=== PATIENT | male | born 1970 | race African-American/Black ===

== ENCOUNTER 2017-04-01 17:38 | Emergency (ER) | payer OTHER ==
[~2017-04-01] VITALS: Ht 195.6 cm; Wt 113.4 kg
[2017-04-01] MEDS ORDERED: PREDNISONE50 MG ORAL (18:02)
[2017-04-01] MEDS ORDERED: LORATADINE10 M2 PO (18:02)
[2017-04-01] MEDS ORDERED: FLONASE ALLERG9.9 ML NS (18:02)
[2017-04-01] MEDS ORDERED: AUGMENTIN 875-1 EAC1 ORAL (18:02)
--- NOTE | 2017-04-01 18:04 | Emergency Room Report ---
History of Present Illness General Chief Complaint: Flu Like Symptoms Source: Patient Present Illness HPI 46 y/o male c/o URI sxs x 3 days. Assoc sxs include nasal congestion, rhinorrhea , right sided sinus headache assoc w/ right ear pressure and dizziness, post nasal drip, bodyaches, chills, and cough due to tickle in the throat. States they have taken ibuprofen with mild relief of symptoms. Denies any current n/v/f /c/d, abd pain, back pain, neck pain, neck stiffness, photophobia, phonophobia, CP, or SOB. Allergies: Coded Allergies: MORPHINE (Verified Allergy, Unknown, 04/01/17) Patient History Past Medical History: see triage record Past Surgical History: none Pertinent Family History: none Reviewed Nursing Documentation: PMH: Agreed, PSxH: Agreed Nursing Documentation-PMH Past Medical History: No Stated History Review of Systems All Other Systems: negative except mentioned in HPI Physical Exam Vital Signs Date Time Temp Pulse Resp B/P (MAP) Pulse Ox O2 Delivery O2 Flow Rate FiO2 04/01/17 17:41 98.4 67 18 133/82 100 Room Air Sp02 EP Interpretation: reviewed, normal General Appearance: no apparent distress, alert, GCS 15, non-toxic Head: normocephalic, atraumatic Eyes: bilateral eye normal inspection, bilateral eye PERRL ENT: hearing grossly normal, normal pharynx, no angioedema, normal voice, nasal congestion, other - right TM erythematous and bulging. Right maxillary sinus tenderness Neck: full range of motion, no meningismus, no bony tend, supple/symm/no masses Respiratory: chest non-tender, lungs clear, normal breath sounds, speaking full sentences Cardiovascular #1: regular rate, rhythm, no edema Gastrointestinal: non tender, soft Musculoskeletal: back normal, gait/station normal, normal range of motion, non- tender Neurologic: alert, oriented x3, responsive, motor strength/tone normal, sensory intact, speech normal Skin: normal color, no rash, warm/dry, well hydrated Medical Decision Making PA Attestation Dr. Atkinson my supervising physician with whom patient management has been discussed with. Diagnostic Impression: Primary Impression: Otitis media of right ear Qualified Codes: H65.111 - Acute and subacute allergic otitis media (mucoid) ( sanguinous) (serous), right ear Additional Impression: Sinus headache ER Course Pt. presents to the ED c/o URI sxs x 3 days Ddx considered but are not limited to AOM, sinus pressure, AOE, URI, sinusitis, meningitis, CVA, ICH, labrynthisitis, strep throat, pnuemonia Vital signs: are WNL, pt. is afebrile H&PE are most consistent with AOM w/ sinus headache ORDERS: none required at this time, the diagnosis is clinical ED INTERVENTIONS: none required at this time. DISCHARGE: At this time pt. is stable for d/c to home. Will provide printed patient care instructions, and any necessary prescriptions. Care plan and follow up instructions have been discussed with the patient prior to discharge. Last Vital Signs Date Time Temp Pulse Resp B/P (MAP) Pulse Ox O2 Delivery O2 Flow Rate FiO2 04/01/17 17:51 65 16 Room Air 04/01/17 17:41 98.4 133/82 100 Disposition: HOME, SELF-CARE Condition: Stable Scripts Amoxicillin/Potassium Clav 875-125* (AUGMENTIN 875-125 TABLET*) 1 Each Tablet 1 TAB ORAL TWICE A DAY for 10 Days, #20 TAB Prov: SABRY,TAMEEM P.A. 04/01/17 Prednisone* (PREDNISONE*) 50 Mg Tablet 50 MG ORAL DAILY, #5 TAB 0 Refills Prov: SABRY,TAMEEM P.A. 04/01/17 Loratadine (LORATADINE) 10 Mg Tablet 10 MG PO DAILY for 14 Days, #14 TAB Prov: SABRY,TAMEEM P.A. 04/01/17 Fluticasone Propionate (Flonase Allergy Relief) 9.9 Ml [place].susp 2 SPRAYS NS DAILY for 7 Days, #10 ML Prov: SABRY,TAMEEM P.A. 04/01/17 Patient Instructions: Labyrinthitis, Otitis Media, Adult, Sinus Headache Additional Instructions: Take medication as directed. Advised patient to use salt water gargle PRN. Advised patient to use chloraseptic as needed for throat pain in addition to APAP Q4H. Patient advised they can take Ibuprofen and Tylenol Q6H together for fever control as well. Educated patient on rhinitis and encouraged patient to use OTC nasal decongestants, nasal irrigation / saline sprays, and avoidance of possible triggers that can cause nasal irritation. Educated patient on the benefits of the various OTC medications available (ie. H1 blockers, decongestants, nasal steroids, etc.). If sxs worsen or don't improve, please return sooner. Go to the ER if you develop SOB, CP, Rash, photophobia, neck pain , throat swelling occur, go to the ER immediately. BRAYDEN ALBA Apr 01, 2017 18:04
[2017-04-01 18:10] VITALS: BP 119/84
== END 2017-04-01 18:10 | disposition home or self-care (01) ==
LOC: EMR 17:50
DX: H66.91 Otitis media, unspecified, right ear (principal); R51 Headache; Z88.6 Allergy status to analgesic agent
CPT/HCPCS: 99284

== ENCOUNTER 2017-07-23 12:47 | Emergency (ER) | payer MEDICAID, OTHER ==
[~2017-07-23] VITALS: Ht 195.6 cm; Wt 112.5 kg
[~2017-07-23 12:47] MED LIST: AUGMENTIN 875-1 EAC1 ORAL; FLONASE ALLERG9.9 ML NS; LORATADINE10 M2 PO; PREDNISONE50 MG ORAL
[2017-07-23] MEDS ORDERED: Ketorolac 30mg Inj IM ONE (13:00)
--- NOTE | 2017-07-23 13:02 | Emergency Room Report ---
History of Present Illness General Chief Complaint: Lower Extremity Injury Source: Patient Present Illness HPI 46 yo male patient presents to ER complaining of right knee pain since last night. Reports jumped out of way of car and fell onto right knee. Denies hitting head or LOC. Reports fell to knee, no pain at first but hour after accident began to experience pain. Reports went and bought crutches and stayed home with knee elevated and ice after accident. Reports no loss of ROM but painful to do so. Reports took Ibuprofen for pain. Denies fever, chest pain, SOB. Allergies: Coded Allergies: MORPHINE (Verified Allergy, Unknown, 04/01/17) Patient History Past Medical History: see triage record Reviewed Nursing Documentation: PMH: Agreed; PSxH: Agreed Nursing Documentation-PMH Past Medical History: No Stated History Review of Systems All Other Systems: negative except mentioned in HPI Physical Exam Vital Signs Date Time Temp Pulse Resp B/P (MAP) Pulse Ox O2 Delivery O2 Flow Rate FiO2 07/23/17 12:50 98.2 72 18 143/88 96 Room Air 98.2 Sp02 EP Interpretation: reviewed, normal General Appearance: well appearing, no apparent distress, alert, GCS 15, non- toxic Head: normocephalic, atraumatic Eyes: bilateral eye normal inspection, bilateral eye PERRL Neck: full range of motion Respiratory: lungs clear, normal breath sounds, no rhonchi, no respiratory distress, no accessory muscle use, no wheezing, speaking full sentences Cardiovascular #1: regular rate, rhythm, no edema Cardiovascular #2: 2+ dorsalis pedis (R), 2+ dorsalis pedis (L) Musculoskeletal: back normal, digits/nails normal, non-tender, decreased range of motion - secondary to pain, swelling - right knee, other - NVI, no deformity , negative anterior and posterior drawer test, no laxity with varus/valgus stress, no abrasion, no skin break, no erythema, tender - medial aspect of right patella Neurologic: alert, oriented x3, responsive, motor strength/tone normal, sensory intact Psychiatric: mood/affect normal Skin: no rash Medical Decision Making PA Attestation Dr. Atkinson is my supervising Physician whom patient management has been discussed with. Diagnostic Impression: Primary Impression: Patella fracture ER Course Pt. presents to the ED c/o right knee pain. Ddx considered but are not limited to fracture, sprain, strain, contusion. No warmth to touch of knee, no erythema, no fever, nontoxic appearing, low suspicion for septic joint. Vital signs: are WNL, pt. is afebrile. BP slightly elevated, no hx of HTN. Denies CP, SOB. Likely related to pain. F/u with primary care provider for further management and referral as needed. Ordered X-ray and pain medication. ER COURSE Provided with Toradol for pain. An X-ray of the right knee was ordered, results show nondisplaced patella fracture, per the official reading. Radiologist discussed findings by phone with Dr. Atkinson in the emergency room at the time of interpretation. Knee immobilizer applied to right knee and was checked afterwards by me showing good alignment and support with distal neurovascular functioning intact. Patient has crutches, does not require. NWB RICE method. F/u with ortho. Provided with work note and CD copy of xray results. DISCHARGE: -Rx provided for Tylenol for pain symptoms. At this time pt. is stable for d/c to home. Patient is resting comfortably, in no acute distress, nontoxic appearing, talking without difficulty. Will provide printed patient care instructions, and any necessary prescriptions. Patient instructed to follow with primary care provider in 3 - 5 days and to request further orthopedic follow-up. Care plan and follow up instructions have been discussed with the patient prior to discharge. Patient instructed on RICE method: rest, ice, compression, elevation. Patient instructed to NWB. Take medications as directed. Patient questions asked and answered. Patient reports understanding and agreement to treatment plan. ER precautions given, patient instructed to return to ER immediately for any new or worsening of symptoms. Other X-Ray Diagnostic Results Other X-Ray Diagnostic Results : X-Ray ordered: right knee # of Views/Limited Vs Complete: 3 View Indication: Pain EP Interpretation: Yes PA Xray: Interpretation reviewed, by supervising MD, and agrees with findings. Interpretation: no dislocation, no soft tissue swelling, other - Medial patellar lucency, could represent a nondisplaced fracture. Correlate with clinical findings. No other acute bony trauma demonstrated Impression: Other PA Scribe Text Kyle Humphreys PA-C Last Vital Signs Date Time Temp Pulse Resp B/P (MAP) Pulse Ox O2 Delivery O2 Flow Rate FiO2 07/23/17 12:50 98.2 72 18 143/88 96 Room Air 98.2 Disposition: HOME, SELF-CARE Condition: Stable Scripts Ibuprofen* (MOTRIN*) 600 Mg Tablet 600 MG ORAL Q8H PRN for For Pain, #30 TAB 0 Refills Prov: Shine Humphreys 07/23/17 Departure Forms: Return to Work Return to Work Date: Jul 26, 2017 Patient Instructions: Knee Pain, [id number], Patellar Fracture, Adult Additional Instructions: Patient instructed to follow up with primary care provider and discuss further referral to orthopedics. Patient instructed on RICE method: rest, ice, compression, elevation. Patient instructed to NWB. Take medications as directed. Patient questions asked and answered. ER precautions given, patient instructed to return to ER immediately for any new or worsening of symptoms. Shine Humphreys Jul 23, 2017 13:02
[2017-07-23] MEDS ORDERED: IBUPROFEN600 MG ORAL (14:19)
[2017-07-23 14:31] VITALS: BP 140/85
--- NOTE | 2017-07-23 14:34 | Diagnostic Imaging Report ---
Indication: Pain, status post fall Technique: 3 views of the read knee Comparison: None Findings: There is a lucency on the medial aspect of the patella on the oblique view, not evident on other images. There is no overlying soft tissue swelling. No other evidence of acute fracture. No dislocations. The joint spaces are preserved Impression: Medial patellar lucency, could represent a nondisplaced fracture. Correlate with clinical findings. No other acute bony trauma demonstrated Findings discussed by phone with Dr. Atkinson in the emergency room at the time of interpretation
== END 2017-07-23 14:40 | disposition home or self-care (01) ==
LOC: EMR 13:25
DX: S82.001A Unspecified fracture of right patella, initial encounter for closed fracture (principal); Z88.6 Allergy status to analgesic agent; W18.39XA Other fall on same level, initial encounter; Y92.9 Unspecified place or not applicable
CPT/HCPCS: 73562; 96372; 99283; J1885

== ENCOUNTER 2017-10-13 16:24 | Emergency (ER) | payer MEDICAID ==
[~2017-10-13] VITALS: Ht 195.6 cm; Wt 108.9 kg
[~2017-10-13 16:24] MED LIST changes: +IBUPROFEN600 MG ORAL
[2017-10-13 16:53] VITALS: BP 147/82
[2017-10-13] MEDS ORDERED: Lidocaine 2% Visc 15ml soln ORAL ONE (17:15)
[2017-10-13] MEDS ORDERED: Fluconazole 100mg tab ORAL ONE (17:15)
[2017-10-13] MEDS ORDERED: NYSTATIN100000 UN1 ORAL (17:20)
--- NOTE | 2017-10-13 17:21 | Emergency Room Report ---
History of Present Illness General Chief Complaint: Male Urogenital Problems Source: Patient Present Illness HPI 47-year-old male patient presents ER complaining of fungal infection on his penis for the past 2 days. Reports his is currently treated for yeast infection and he recently had unprotected sex with her. Also reports that he performed oral to genital sex. Complaining of sore throat. Denies fever, chest pain, shortness breath, difficulty breathing. REports currently taking Monistat as instructed by wifes provider. denies dysuria, hematuria. Denies penile or testicular pain or swelling. Allergies: Coded Allergies: PEANUT (Verified Allergy, Severe, Anaphylaxis, 10/13/17) MORPHINE (Verified Allergy, Unknown, 04/01/17) Wheat (Verified Allergy, Unknown, 10/13/17) Patient History Past Medical History: see triage record Reviewed Nursing Documentation: PMH: Agreed; PSxH: Agreed Nursing Documentation-PMH Past Medical History: No Stated History Review of Systems All Other Systems: negative except mentioned in HPI Physical Exam Vital Signs Date Time Temp Pulse Resp B/P (MAP) Pulse Ox O2 Delivery O2 Flow Rate FiO2 10/13/17 16:43 98.2 69 18 147/82 98 Room Air 98.2 Sp02 EP Interpretation: reviewed, normal General Appearance: well appearing, no apparent distress, alert, GCS 15, non- toxic Head: normocephalic, atraumatic Eyes: bilateral eye normal inspection, bilateral eye PERRL ENT: hearing grossly normal, normal pharynx, no angioedema, normal voice, uvula midline, moist mucus membranes Neck: full range of motion Respiratory: lungs clear, normal breath sounds, no rhonchi, no respiratory distress, no accessory muscle use, no wheezing, speaking full sentences Cardiovascular #1: regular rate, rhythm, no edema Genitourinary: no CVA tenderness, penis normal - uncircumcised, scrotum normal Musculoskeletal: back normal, digits/nails normal, gait/station normal, normal range of motion, non-tender Neurologic: alert, oriented x3, responsive, motor strength/tone normal, sensory intact Psychiatric: mood/affect normal Skin: other - white cottage cheese-like, adherent rash under retracted foreskin of penis Lymphatic: no adenopathy Medical Decision Making PA Attestation Dr. Gabriel is my supervising Physician whom patient management has been discussed with. Diagnostic Impression: Primary Impression: Fungal infection ER Course Pt. presents to the ED c/o fungal infection and sore throat. Multiple differentials considered. Vital signs: are WNL, pt. is afebrile ER COURSE: provide fluconazole and viscous lidocaine provided to patient for sore throat. Denies dysuria, hematuria, flank pain, does not need UA at this time, low suspicion for UTI. No pharyngeal erythema, no tonsillar exudates, no tonsillar swelling, uvula midline, no stridor or drooling, low suspicion for strep pharyngitis or peritonsillar abscess. No exudates observed within oropharynx. Patient reports recent oral to vaginal sexual contact and complaining of esophageal discomfort, will provide treatment for patient for possible fungal esophagitis. Needs follow-up with primary care provider to discuss for further evaluation and treatment. Informed patient of fungal infections like warm moist areas, keep area clean and dry. Continue to use topical fungal infection as previously instructed. Wear condoms during sex. No sexual activity for 2 weeks. followup with PCP and STI clinic for further testing and treatment for possible STI. DISCHARGE: Rx provided for Nystatin At this time pt is stable for d/c to home. Patient is resting comfortably, in no acute distress, nontoxic appearing, talking without difficulty. Patient to take medications as instructed Will provide with patient care instructions and any necessary prescriptions. Care plan and follow-up instructions provided. Patient instructed to follow-up with primary care provider in 3 - 5 days. Patient questions asked and answered. Patient reports understanding and agreement to treatment plan. ER precautions given. Patient instructed to return to ER immediately for any new or worsening of symptoms including but not limited to increasing SOB, persistent fever, chest pain, intractable vomiting. - Please note that this Emergency Department Report was dictated using [employer] technology software, occasionally this can lead to erroneous entry secondary to interpretation by the dictation equipment. Last Vital Signs Date Time Temp Pulse Resp B/P (MAP) Pulse Ox O2 Delivery O2 Flow Rate FiO2 10/13/17 16:53 98.2 18 147/82 98 Room Air 98.2 10/13/17 16:43 69 Disposition: HOME, SELF-CARE Condition: Stable Scripts Nystatin* (NYSTATIN*) 100,000 Unit/1 Ml [place].susp 5 ML ORAL FOUR TIMES A DAY for 7 Days, #100 ML Swish in the mouth and retain for as long as possible (several minutes) before swallowing Prov: Shine Humphreys 10/13/17 Patient Instructions: Skin Yeast Infection Additional Instructions: Followup with primary care provider in 3 -5 days. Take medications as directed. Patient questions asked and answered. ER precautions given, patient instructed to return to ER immediately for any new or worsening of symptoms. Shine Humphreys Oct 13, 2017 17:21
[2017-10-13 17:48] VITALS: BP 147/82
== END 2017-10-13 17:50 | disposition home or self-care (01) ==
LOC: EMR 17:05
DX: B48.8 Other specified mycoses (principal); Z91.010 Allergy to peanuts; Z88.5 Allergy status to narcotic agent
CPT/HCPCS: 99283